=== PATIENT | female | born 1985 | race Caucasian/White ===

== ENCOUNTER 2018-08-21 08:05 | Emergency (ER) | payer OTHER ==
[~2018-08-21] VITALS: Ht 170.2 cm; Wt 87.0 kg
[~2018-08-21 08:05] MED LIST: CLIN300C85 PO
[2018-08-21 08:11] VITALS: BP 134/77
[2018-08-21] MEDS ORDERED: TAM75C PO (08:22)
[2018-08-21] MEDS ORDERED: CEFD300C3 PO (08:22)
== END 2018-08-21 08:33 | disposition home or self-care (01) ==
LOC: ER 08:05 → EEVIPCON 08:05 → ER 08:33
DX: O99.511 Diseases of the respiratory system complicating pregnancy, first trimester (principal); J01.00 Acute maxillary sinusitis, unspecified; J01.10 Acute frontal sinusitis, unspecified; Z3A.13 13 weeks gestation of pregnancy; Z88.0 Allergy status to penicillin; Z88.1 Allergy status to other antibiotic agents; Z88.2 Allergy status to sulfonamides
CPT/HCPCS: 99283

== ENCOUNTER 2020-02-05 09:29 | Outpatient (CLI) | payer BC ==
[~2020-02-05 09:29] MED LIST changes: +CLIN-97 PO; -CLIN300C85 PO
== END 2020-02-05 23:59 | disposition home or self-care (01) ==
LOC: LAB 09:29
DX: Z01.818 Encounter for other preprocedural examination (principal); Z11.59 Encounter for screening for other viral diseases
CPT/HCPCS: 36415; U0003

== ENCOUNTER 2020-02-24 08:11 | Outpatient (CLI) | payer BC | END 2020-02-24 23:59 | disposition home or self-care (01) | LOC: LAB 08:11 | DX: Z34.80 Encounter for supervision of other normal pregnancy, unspecified trimester (principal); Z3A.00 Weeks of gestation of pregnancy not specified | CPT/HCPCS: 36415; 84144; 84702 ==

== ENCOUNTER 2020-03-24 15:07 | Outpatient (CLI) | payer BC | END 2020-03-24 23:59 | disposition home or self-care (01) | LOC: LAB 15:07 | DX: Z01.812 Encounter for preprocedural laboratory examination (principal); Z20.828 Contact with and (suspected) exposure to other viral communicable diseases | CPT/HCPCS: 36415; C9803 ==

== ENCOUNTER 2020-04-08 16:08 | Outpatient (CLI) | payer BC | END 2020-04-08 23:59 | disposition home or self-care (01) | LOC: LAB 16:08 | DX: Z34.80 Encounter for supervision of other normal pregnancy, unspecified trimester (principal) | CPT/HCPCS: 36415; 84144; 84702 ==

== ENCOUNTER 2020-04-29 11:27 | Outpatient (CLI) | payer BC ==
[2020-04-29 16:38] LABS: HIV ANTIBODY 1&2 RAPID NON-REACTIVE (Neg)
[2020-04-30 09:49] LABS: HBSAG SCREEN Negative (Negative)
== END 2020-04-29 23:59 | disposition home or self-care (01) ==
LOC: LAB 11:27
DX: Z00.00 Encounter for general adult medical examination without abnormal findings (principal); Z11.3 Encounter for screening for infections with a predominantly sexual mode of transmission; Z11.4 Encounter for screening for human immunodeficiency virus [HIV]; Z11.9 Encounter for screening for infectious and parasitic diseases, unspecified
CPT/HCPCS: 36415; 86592; 86703; 86706; 86803; 87340

== ENCOUNTER 2020-05-24 10:47 | Outpatient (CLI) | payer BC | END 2020-05-24 23:59 | disposition home or self-care (01) | LOC: LAB 10:47 | DX: Z34.80 Encounter for supervision of other normal pregnancy, unspecified trimester (principal) | CPT/HCPCS: 36415; 84144; 84702 ==

== ENCOUNTER 2020-05-26 08:38 | Outpatient (CLI) | payer BC | END 2020-05-26 23:59 | disposition home or self-care (01) | LOC: LAB 08:38 | DX: Z34.80 Encounter for supervision of other normal pregnancy, unspecified trimester (principal); Z3A.00 Weeks of gestation of pregnancy not specified | CPT/HCPCS: 36415; 84144; 84702 ==

== ENCOUNTER → 2020-05-28 | Outpatient (CLI) | payer BC | END | disposition home or self-care (01) | LOC: LAB 14:53 | DX: Z34.80 Encounter for supervision of other normal pregnancy, unspecified trimester (principal) | CPT/HCPCS: 36415; 84144; 84702 ==

== ENCOUNTER 2020-09-22 07:53 | Outpatient (CLI) | payer BC | END 2020-09-22 23:59 | disposition home or self-care (01) | LOC: LAB 07:53 | DX: Z34.80 Encounter for supervision of other normal pregnancy, unspecified trimester (principal); Z3A.00 Weeks of gestation of pregnancy not specified | CPT/HCPCS: 36415; 84144; 84702 ==

== ENCOUNTER → 2020-09-24 | Outpatient (CLI) | payer BC | END | disposition home or self-care (01) | LOC: LAB 08:52 | DX: Z34.80 Encounter for supervision of other normal pregnancy, unspecified trimester (principal) | CPT/HCPCS: 36415; 84144; 84702 ==

== ENCOUNTER 2021-04-13 11:40 | Outpatient (CLI) | payer BC | END 2021-04-13 23:59 | disposition home or self-care (01) | LOC: LAB 11:40 | PROVIDERS: ATTEND Specialist | DX: Z00.00 Encounter for general adult medical examination without abnormal findings (principal); Z53.21 Procedure and treatment not carried out due to patient leaving prior to being seen by health care provider ==

== ENCOUNTER 2021-04-13 11:47 | Outpatient (CLI) | payer BC ==
[2021-04-13 12:39] LABS: BASOPHILS % (AUTO) 0.3 % (0-1); EOSINOPHILS # (AUTO) 0.3 X10'3 (0-0.9); EOSINOPHILS % (AUTO) 3.4 % (0-6); HEMATOCRIT 41.3 % (35.0-45.0); HEMOGLOBIN 13.8 g/dl (12.0-16.0); LYMPHOCYTES # (AUTO) 1.7 X10'3 (1.1-4.8); LYMPHOCYTES % (AUTO) 19.7 % (21-51); MEAN CORPUSCULAR HEMOGLOBIN 28.1 PG (27.0-31.0); MEAN CORPUSCULAR HGB CONC 33.3 g/dL (33.0-36.5); MEAN CORPUSCULAR VOLUME 84.4 FL (78-98); MEAN PLATELET VOLUME 8.8 FL (7.4-10.4); MONOCYTES # (AUTO) 0.4 X10'3 (0-0.9); MONOCYTES % (AUTO) 4.5 % (2-12); NEUTROPHILS # (AUTO) 6.1 X10'3 (1.8-7.7); NEUTROPHILS % (AUTO) 72.1 % (42-75); PLATELET COUNT 304 X10'3 (140-440); RED BLOOD COUNT 4.89 X10'6 (4.20-5.60); RED CELL DISTRIBUTION WIDTH 13.8 % (11.5-14.5); WHITE BLOOD COUNT 8.5 X10'3 (4.5-11.0)
[2021-04-13 13:09] LABS: ALANINE AMINOTRANSFERASE 61 U/L (12-78); ALBUMIN/GLOBULIN RATIO 1.1 (1.1-1.5); ALKALINE PHOSPHATASE 74 IU/L (46-116); ANION GAP 12 (8-16); ASPARTATE AMINO TRANSFERASE 27 U/L (10-37); BILIRUBIN,TOTAL 0.4 MG/DL (0.1-1.0); BLOOD UREA NITROGEN 12 MG/DL (7-18); BUN/CREATININE RATIO 14.6 (6.6-38.0); CALCIUM 8.7 MG/DL (8.5-10.1); CHLORIDE 104 MMOL/L (99-107); CHOL/HDL RATIO 4.3 (0.00-4.99); CHOLESTEROL 177 MG/DL (0-200); CREATININE 0.82 MG/DL (0.40-0.90); GLUCOSE 131 MG/DL (70-104); HDL CHOLESTEROL 41 MG/DL (35-60); HEMOGLOBIN A1C 5.5 % (4.5-6.2); LDL CHOLESTEROL 105 MG/DL (50-100); POTASSIUM 3.7 MMOL/L (3.5-5.1); SODIUM 141 MMOL/L (135-145); TOTAL CARBON DIOXIDE 25.3 MMOL/L (24-32); TOTAL PROTEIN 7.6 G/DL (6.4-8.2); TRIGLYCERIDES 229 MG/DL (20-135); eGFR 79 ML/MIN
== END 2021-04-13 23:59 | disposition home or self-care (01) ==
LOC: LAB 11:47
PROVIDERS: ATTEND Nurse Practitioner Family
DX: R79.89 Other specified abnormal findings of blood chemistry (principal); R68.89 Other general symptoms and signs; E78.5 Hyperlipidemia, unspecified; E55.9 Vitamin D deficiency, unspecified; R73.09 Other abnormal glucose; R94.6 Abnormal results of thyroid function studies
CPT/HCPCS: 36415; 80053; 80061; 82306; 83036; 84443; 85025

== ENCOUNTER 2021-08-01 10:35 | Day surgery (SDC) | payer BC ==
[2021-07-22 11:17] LABS: BASOPHILS % (AUTO) 0.3 % (0-1); EOSINOPHILS # (AUTO) 0.1 X10'3 (0-0.9); EOSINOPHILS % (AUTO) 1.2 % (0-6); LYMPHOCYTES # (AUTO) 1.7 X10'3 (1.1-4.8); LYMPHOCYTES % (AUTO) 19.4 % (21-51); MEAN CORPUSCULAR HEMOGLOBIN 27.7 PG (27.0-31.0); MEAN CORPUSCULAR HGB CONC 33.5 g/dL (33.0-36.5); MEAN CORPUSCULAR VOLUME 82.8 FL (78-98); MONOCYTES # (AUTO) 0.4 X10'3 (0-0.9); MONOCYTES % (AUTO) 4.9 % (2-12); NEUTROPHILS # (AUTO) 6.7 X10'3 (1.8-7.7); NEUTROPHILS % (AUTO) 74.2 % (42-75); PRE OP HEMATOCRIT 39.1 % (35.0-45.0); PRE OP HEMOGLOBIN 13.1 g/dL (12.0-16.0); PRE OP PLATELET COUNT 307 X10'3 (140-440); RED BLOOD COUNT 4.73 X10'6 (4.20-5.60); RED CELL DISTRIBUTION WIDTH 13.7 % (11.5-14.5)
[2021-07-22 11:25] LABS: HCG SERUM QL NEGATIVE
[2021-07-22 11:28] LABS: ALBUMIN 3.4 G/DL (3.4-5.0); ALBUMIN/GLOBULIN RATIO 0.8 (1.1-1.5); ALKALINE PHOSPHATASE 56 IU/L (46-116); BLOOD UREA NITROGEN 14 MG/DL (7-18); BUN/CREATININE RATIO 17.9 (6.6-38.0); CALCIUM 8.8 MG/DL (8.5-10.1); CHLORIDE 104 MMOL/L (99-107); CREATININE 0.78 MG/DL (0.40-0.90); PRE OP ALT 42 U/L (30-65); PRE OP ANION GAP 11 (8-16); PRE OP AST 20 U/L (10-37); PRE OP BILIRUB, TOTAL 0.3 MG/DL (0.0-1.0); PRE OP GLUCOSE 89 MG/DL (70-104); PRE OP POTASSIUM 3.9 MMOL/L (3.4-5.1); PRE OP SODIUM 140 MMOL/L (135-145); TOTAL CARBON DIOXIDE 24.6 MMOL/L (24-32); TOTAL PROTEIN 7.5 G/DL (6.4-8.2); eGFR 84 ML/MIN
[~2021-08-01] VITALS: Ht 170.2 cm; Wt 83.0 kg
[2021-08-01] VITALS (13 sets, daily range): BP systolic 114–137; BP diastolic 71–93
[~2021-08-01 10:35] MED LIST changes: +Birth Control; -CLIN-97 PO; +DOCUMENT DATE & TIME OF BETA-BLOCKER PO ONE; +ceFOXitin 2GM-NS 100mL ADDvant 100 ML IV ONE; +famotidine 20mg tablet PO ONE; +ringers solution, lacted 1,000 ML IV SCH
[2021-08-01] MEDS ORDERED: BUPIVAcaine 0.5% W/EPI /PF 10ml vial ONE (12:48)
[2021-08-01] MEDS ORDERED: morphine 4 MG/ML inj SYRINge IV PRN (13:00)
[2021-08-01] MEDS ORDERED: morphine 2 MG/ML inj. syringe IV PRN (13:00)
[2021-08-01] MEDS ORDERED: hydrALAZINE 20mg/ml inj. IV PRN (13:00)
[2021-08-01] MEDS ORDERED: ringers solution, lacted 1,000 ML IV SCH (13:00)
[2021-08-01] MEDS ORDERED: ondansetron/PF 4mg/2ml inj IV PRN (13:00)
[2021-08-01] MEDS ORDERED: fentaNYL/PF 50MCG/1 ML 2ML syringe IV PRN ×2 (13:00)
[2021-08-01] MEDS ORDERED: labetalol 20mg/4ml (5mg/ml) syringe IV PRN (13:00)
[2021-08-01] MEDS ORDERED: fentaNYL/PF 50MCG/1 ML 2ML syringe ONE (13:03)
[2021-08-01] MEDS ORDERED: midazolam 1 mg/ML 2ml injection ONE (13:04)
[2021-08-01] MEDS ORDERED: LIDOcaine 2% (20mg/ml) 5ml vial ONE (13:04)
[2021-08-01] MEDS ORDERED: propofol inj 20 ML IV ONE (13:04)
[2021-08-01] MEDS ORDERED: sevoflurane 250ml liquid IH ONE (13:05)
[2021-08-01] MEDS ORDERED: dexamethasone sod phosphate 10mg/ml inj ONE (13:05)
[2021-08-01] MEDS ORDERED: ondansetron/PF 4mg/2ml inj ONE (13:05)
[2021-08-01] MEDS ORDERED: acetaminophen 1,000mg/100ml IV 100 ML IV ONE (13:13)
[2021-08-01] MEDS ORDERED: HYDROcodone/acetaminophen 5mg/325mg tablet PO ONE (15:00)
== END 2021-08-01 15:29 | disposition home or self-care (01) ==
LOC: PAS 10:35
PROVIDERS: ATTEND Specialist
DX: N92.0 Excessive and frequent menstruation with regular cycle (principal); N71.1 Chronic inflammatory disease of uterus; Z88.0 Allergy status to penicillin; Z79.899 Other long term (current) drug therapy; Z72.89 Other problems related to lifestyle; Z98.890 Other specified postprocedural states
CPT/HCPCS: 36415; 58563; 80053; 82948; 84703; 85025; J0131; J0694; J1100; J2250; J2405; J2704; J3010; J3490; J7120; S0020; Z7506; Z7512; A4355; A4618; A4649; A6258; A7000

== ENCOUNTER 2021-10-28 08:27 | Outpatient (CLI) | payer BC ==
[~2021-10-28 08:27] MED LIST changes: -DOCUMENT DATE & TIME OF BETA-BLOCKER PO ONE; -ceFOXitin 2GM-NS 100mL ADDvant 100 ML IV ONE; -famotidine 20mg tablet PO ONE; -ringers solution, lacted 1,000 ML IV SCH
[2021-10-28 09:14] LABS: ALANINE AMINOTRANSFERASE 43 U/L (12-78); ALBUMIN 3.8 G/DL (3.4-5.0); ALBUMIN/GLOBULIN RATIO 1.2 (1.1-1.5); ALKALINE PHOSPHATASE 59 IU/L (46-116); ASPARTATE AMINO TRANSFERASE 20 U/L (10-37); BLOOD UREA NITROGEN 9 MG/DL (7-18); BUN/CREATININE RATIO 12.7 (6.6-38.0); CALCIUM 8.7 MG/DL (8.5-10.1); CHLORIDE 104 MMOL/L (99-107); CHOL/HDL RATIO 3.9 (0.00-4.99); CHOLESTEROL 186 MG/DL (0-200); CREATININE 0.71 MG/DL (0.40-0.90); GLUCOSE 95 MG/DL (70-104); HDL CHOLESTEROL 48 MG/DL (35-60); LDL CHOLESTEROL 103 MG/DL (50-100); POTASSIUM 4.2 MMOL/L (3.5-5.1); SODIUM 142 MMOL/L (135-145); TOTAL PROTEIN 7.1 G/DL (6.4-8.2); TRIGLYCERIDES 240 MG/DL (20-135); eGFR > 90 ML/MIN
[2021-10-28 09:52] LABS: ANION GAP 13 (8-16); BILIRUBIN,TOTAL 0.3 MG/DL (0.1-1.0); TOTAL CARBON DIOXIDE 25.1 MMOL/L (24-32)
[2021-10-31] MEDS ORDERED: RIME75TA PO (10:00)
[2021-10-31] MEDS ORDERED: MULT-1085 PO (10:00)
== END 2021-10-28 23:59 | disposition home or self-care (01) ==
LOC: LAB 08:27
PROVIDERS: ATTEND Nurse Practitioner Family
DX: E78.00 Pure hypercholesterolemia, unspecified (principal); E78.5 Hyperlipidemia, unspecified; R68.89 Other general symptoms and signs; R53.83 Other fatigue
CPT/HCPCS: 36415; 80053; 80061; 84439; 84443

== ENCOUNTER → 2021-11-03 | Day surgery (SDC) | payer BC ==
[2021-10-31 10:27] LABS: BASOPHILS % (AUTO) 0.4 % (0-1); EOSINOPHILS # (AUTO) 0.3 X10'3 (0-0.9); EOSINOPHILS % (AUTO) 4.7 % (0-6); LYMPHOCYTES # (AUTO) 1.9 X10'3 (1.1-4.8); LYMPHOCYTES % (AUTO) 25.3 % (21-51); MEAN CORPUSCULAR HEMOGLOBIN 26.8 PG (27.0-31.0); MONOCYTES # (AUTO) 0.5 X10'3 (0-0.9); MONOCYTES % (AUTO) 6.8 % (2-12); NEUTROPHILS # (AUTO) 4.6 X10'3 (1.8-7.7); NEUTROPHILS % (AUTO) 62.8 % (42-75); PRE OP HEMATOCRIT 42.9 % (35.0-45.0); PRE OP HEMOGLOBIN 14.2 g/dL (12.0-16.0); PRE OP PLATELET COUNT 268 X10'3 (140-440); RED CELL DISTRIBUTION WIDTH 14.5 % (11.5-14.5)
[2021-10-31 11:00] LABS: HCG SERUM QL NEGATIVE
[2021-11-03] VITALS (8 sets, daily range): BP systolic 104–144; BP diastolic 67–97
[~2021-11-03] VITALS: Ht 170.2 cm; Wt 87.7 kg
[~2021-11-03] MED LIST changes: +BUPIVAcaine 0.5% inj/PF 30 ml vial IJ ONE; +BUPIVAcaine 0.5% inj/PF 60 ML ONE; -Birth Control; +FENTANYL CITRATE/PF 50 MCG/1 ML VIAL ONE; +LIDOcaine 2% (20mg/ml) 5ml vial ONE; +MULT-1085 PO; +RIME75TA PO; +ceFOXitin 2GM-NS 100mL ADDvant 100 ML IV ONE; +dexamethasone sod phosphate 4mg/ml inj. ONE; +epiNEPHrine 1 mg/ml inj ONE; +famotidine 20mg tablet PO ONE; +fentaNYL/PF 50MCG/1 ML 2ML syringe IV PRN; +glycopyrrolate 0.2mg/ml inj ONE; +hydrALAZINE 20mg/ml inj. IV PRN; +ketorolac trometh. 30mg/ml inj. ONE; +labetalol 20mg/4ml (5mg/ml) syringe IV ONE; +labetalol 20mg/4ml (5mg/ml) syringe IV PRN; +midazolam 1 mg/ML 2ml injection ONE; +morphine 2 MG/ML inj. syringe IV PRN; +morphine 4 MG/ML inj SYRINge IV PRN; +neostigmine methylsulfate 1 MG/ML 10ml vial ONE; +ondansetron/PF 4mg/2ml inj IV PRN; +ondansetron/PF 4mg/2ml inj ONE; +propofol inj 20 ML IV ONE; +ringers solution, lacted 1,000 ML IV SCH; +rocuronium 10mg/ml inj IV ONE; +sevoflurane 250ml liquid IH ONE
--- NOTE | 2021-11-03 08:13 | NUR ---
Received from OR via [facility], accompanied by Anesthesiologist NELSON and report given by Anesthesiolgist. PATIENT WITH 20G PIV IN LEFT UE RUNNING LR AT 100. DENIES PAIN AT THIS TIME. 2 LAP SITES THAT AREA DERMABONDED SHUT WITH NO DRAINAGE. 10L MASK ON WITH 100% SATURATIONS. Addendum: 11/03/21 at 0824 by Emerson Osman RN, RN Amended: Links added.
--- NOTE | 2021-11-03 09:13 | NUR ---
ALL DISCHARGE CRITERIA HAS BEEN MET. VSS, PAIN AT A TOLERABLE LEVEL, VOIDING AND ABLE TO SAFELY AMBULATE AND TRANSFER SELF. IV TAKEN OUT WITHOUT ANY COMPLICATIONS. ALL DISCHARGE INSTRUCTIONS COVERED WITH PATIENT AND ALL QUESTIONS ANSWERED. PATIENT TAKEN OUT VIA WHEELCHAIR TO PERSONAL VEHICLE WHERE FAMILY/FRIEND DROVE PATIENT HOME. PATIENT DRESSED SELF. Addendum: 11/03/21 at 0943 by Emerson Osman RN, RN Amended: Links added.
== END | disposition home or self-care (01) ==
LOC: PAS 05:24
PROVIDERS: ATTEND Specialist
DX: Z30.2 Encounter for sterilization (principal); G43.909 Migraine, unspecified, not intractable, without status migrainosus; Z88.0 Allergy status to penicillin; Z79.899 Other long term (current) drug therapy; Z98.890 Other specified postprocedural states; Z88.8 Allergy status to other drugs, medicaments and biological substances
CPT/HCPCS: 36415; 58670; 82948; 84703; 85025; J0171; J0694; J1100; J1885; J2250; J2405; J2704; J2710; J3010; J3490; J7030; J7120; S0020; Z7506; Z7512; A4618; A7000

== ENCOUNTER 2022-01-27 08:03 | Outpatient (CLI) | payer BC ==
[~2022-01-27 08:03] MED LIST changes: -BUPIVAcaine 0.5% inj/PF 30 ml vial IJ ONE; -BUPIVAcaine 0.5% inj/PF 60 ML ONE; -FENTANYL CITRATE/PF 50 MCG/1 ML VIAL ONE; -LIDOcaine 2% (20mg/ml) 5ml vial ONE; -ceFOXitin 2GM-NS 100mL ADDvant 100 ML IV ONE; -dexamethasone sod phosphate 4mg/ml inj. ONE; -epiNEPHrine 1 mg/ml inj ONE; -famotidine 20mg tablet PO ONE; -fentaNYL/PF 50MCG/1 ML 2ML syringe IV PRN; -glycopyrrolate 0.2mg/ml inj ONE; -hydrALAZINE 20mg/ml inj. IV PRN; -ketorolac trometh. 30mg/ml inj. ONE; -labetalol 20mg/4ml (5mg/ml) syringe IV ONE; -labetalol 20mg/4ml (5mg/ml) syringe IV PRN; -midazolam 1 mg/ML 2ml injection ONE; -morphine 2 MG/ML inj. syringe IV PRN; -morphine 4 MG/ML inj SYRINge IV PRN; -neostigmine methylsulfate 1 MG/ML 10ml vial ONE; -ondansetron/PF 4mg/2ml inj IV PRN; -ondansetron/PF 4mg/2ml inj ONE; -propofol inj 20 ML IV ONE; -ringers solution, lacted 1,000 ML IV SCH; -rocuronium 10mg/ml inj IV ONE; -sevoflurane 250ml liquid IH ONE
== END 2022-01-27 23:59 | disposition home or self-care (01) ==
LOC: RAD 08:03
PROVIDERS: ATTEND Psychiatry & Neurology Neurology
DX: R51.9 Headache, unspecified (principal); J34.89 Other specified disorders of nose and nasal sinuses
CPT/HCPCS: 70551

== ENCOUNTER 2022-01-27 08:10 | Outpatient (CLI) | payer BC ==
[2022-01-27 09:08] LABS: BASOPHILS % (AUTO) 0.6 % (0-1); EOSINOPHILS # (AUTO) 0.2 X10'3 (0-0.9); EOSINOPHILS % (AUTO) 3.5 % (0-6); HEMATOCRIT 41.7 % (35.0-45.0); HEMOGLOBIN 14.2 g/dl (12.0-16.0); LYMPHOCYTES # (AUTO) 1.5 X10'3 (1.1-4.8); LYMPHOCYTES % (AUTO) 23.5 % (21-51); MEAN CORPUSCULAR HEMOGLOBIN 28.5 PG (27.0-31.0); MEAN CORPUSCULAR HGB CONC 34.1 g/dL (33.0-36.5); MEAN CORPUSCULAR VOLUME 83.7 FL (78-98); MONOCYTES # (AUTO) 0.5 X10'3 (0-0.9); MONOCYTES % (AUTO) 7.7 % (2-12); NEUTROPHILS # (AUTO) 4.1 X10'3 (1.8-7.7); NEUTROPHILS % (AUTO) 64.7 % (42-75); PLATELET COUNT 295 X10'3 (140-440); RED BLOOD COUNT 4.98 X10'6 (4.20-5.60); WHITE BLOOD COUNT 6.3 X10'3 (4.5-11.0)
[2022-01-27 09:12] LABS: ALBUMIN 3.9 G/DL (3.4-5.0); ANION GAP 8 (8-16); BLOOD UREA NITROGEN 19 MG/DL (7-18); CALCIUM 8.9 MG/DL (8.5-10.1); CHLORIDE 104 MMOL/L (99-107); CREATININE 0.73 MG/DL (0.40-0.90); GLUCOSE 98 MG/DL (70-104); POTASSIUM 4.2 MMOL/L (3.5-5.1); SODIUM 140 MMOL/L (135-145); eGFR 90 ML/MIN
[2022-01-28 11:18] LABS: FSH, SERUM 7.4 mIU/mL (.)
== END 2022-01-27 23:59 | disposition home or self-care (01) ==
LOC: LAB 08:10
PROVIDERS: ATTEND Specialist
DX: R23.2 Flushing (principal)
CPT/HCPCS: 36415; 80048; 82679; 83001; 85025

== ENCOUNTER 2023-02-28 08:16 | Emergency (ER) | payer BC ==
[~2023-02-28] VITALS: Ht 170.2 cm; Wt 74.2 kg
[2023-02-28 08:27] VITALS: BP 130/83; PULSE 86; RESP 18; O2SAT 97
[2023-02-28 09:06] LABS: CLARITY,URINE CLEAR (Clear); COLOR,URINE YELLOW (Yellow); GLUCOSE, URINE NEGATIVE (Neg); KETONES,URINE NEGATIVE (Neg); LEUKOCYTE ESTERASE ,URINE NEGATIVE (Neg); NITRITES, URINE NEGATIVE (Neg); OCCULT BLOOD,URINE NEGATIVE (Neg); PROTEIN,URINE NEGATIVE (Neg); UROBILINOGEN,URINE 0.2 E.U/dL (0.2-1.0)
[2023-02-28 09:13] LABS: UA COLLECTION TYPE CLN CATCH MIDSTREAM
== END 2023-02-28 09:46 | disposition home or self-care (01) ==
LOC: ER 08:16
DX: R10.30 Lower abdominal pain, unspecified (principal); R30.0 Dysuria; R35.0 Frequency of micturition; R39.15 Urgency of urination; Z72.89 Other problems related to lifestyle; Z88.0 Allergy status to penicillin; Z88.2 Allergy status to sulfonamides; Z88.8 Allergy status to other drugs, medicaments and biological substances; Z79.899 Other long term (current) drug therapy
CPT/HCPCS: 81003; 99283

== ENCOUNTER 2023-06-13 06:27 | Day surgery (SDC) | payer BC ==
[2023-06-07 10:22] LABS: BASOPHILS % (AUTO) 0.5 % (0-1); EOSINOPHILS # (AUTO) 0.2 X10'3 (0-0.9); EOSINOPHILS % (AUTO) 2.2 % (0-6); HEMATOCRIT 41.7 % (35.0-45.0); HEMOGLOBIN 14.1 g/dl (12.0-16.0); LYMPHOCYTES # (AUTO) 1.4 X10'3 (1.1-4.8); LYMPHOCYTES % (AUTO) 15.7 % (21-51); MEAN CORPUSCULAR HEMOGLOBIN 29.3 PG (27.0-31.0); MEAN CORPUSCULAR HGB CONC 33.7 g/dL (33.0-36.5); MEAN CORPUSCULAR VOLUME 86.7 FL (78-98); MEAN PLATELET VOLUME 8.6 FL (7.4-10.4); MONOCYTES # (AUTO) 0.8 X10'3 (0-0.9); MONOCYTES % (AUTO) 8.6 % (2-12); NEUTROPHILS # (AUTO) 6.6 X10'3 (1.8-7.7); PLATELET COUNT 301 X10'3 (140-440); RED BLOOD COUNT 4.81 X10'6 (4.20-5.60); RED CELL DISTRIBUTION WIDTH 13.3 % (11.5-14.5); WHITE BLOOD COUNT 9.1 X10'3 (4.5-11.0)
[2023-06-07 10:36] LABS: ALANINE AMINOTRANSFERASE 20 U/L (12-78); ALKALINE PHOSPHATASE 60 IU/L (46-116); ANION GAP 7 (8-16); ASPARTATE AMINO TRANSFERASE 14 U/L (10-37); BILIRUBIN,TOTAL 0.6 MG/DL (0.1-1.0); BLOOD UREA NITROGEN 12 MG/DL (7-18); BUN/CREATININE RATIO 17.1 (10.0-20.0); CALCIUM 9.3 MG/DL (8.5-10.1); CHLORIDE 101 MMOL/L (99-107); GLUCOSE 95 MG/DL (70-104); POTASSIUM 4.4 MMOL/L (3.5-5.1); SODIUM 138 MMOL/L (135-145); TOTAL CARBON DIOXIDE 30.4 MMOL/L (24-32); TOTAL PROTEIN 7.9 G/DL (6.4-8.2); eGFR > 90 ML/MIN
[~2023-06-13] VITALS: Ht 170.2 cm; Wt 74.8 kg
[2023-06-13] VITALS (8 sets, daily range): BP systolic 105–115; BP diastolic 68–78; PULSE 68–88; RESP 14–16; TEMP 98.3; O2SAT 98–100
[~2023-06-13 06:27] MED LIST changes: +DOCU-21 PO; +INDLA60C PO; +METF-436 PO; -MULT-1085 PO; -RIME75TA PO; +SEMA0.258 IM; +VITAMIN B12; +[UNRECOGNIZED DRUG - OTHER]; +famotidine 20mg tablet PO ONE; +ringers solution, lacted 1,000 ML IV SCH
[2023-06-13] MEDS ORDERED: LIDOCAINE 1%/EPI 1:100,000 inj. 10 ML multi-dose vial ONE (07:53)
[2023-06-13] MEDS ORDERED: BUPIVAcaine/PF 2.5mg/ml (0.25%) 10ml vial ONE (07:53)
[2023-06-13] MEDS ORDERED: fentaNYL/PF 50MCG/1 ML 2ML syringe ONE (08:27)
[2023-06-13] MEDS ORDERED: rocuronium 10mg/ml inj IV ONE (08:28)
[2023-06-13] MEDS ORDERED: midazolam 1 mg/ML 2ml injection ONE (08:28)
[2023-06-13] MEDS ORDERED: propofol inj 20 ML IV ONE (08:28)
[2023-06-13] MEDS ORDERED: sevoflurane 250ml liquid IH ONE (08:32)
[2023-06-13] MEDS ORDERED: dexamethasone sod phosphate 4mg/ml inj. ONE (08:55)
[2023-06-13] MEDS ORDERED: ondansetron/PF 4mg/2ml inj ONE (09:08)
[2023-06-13] MEDS ORDERED: acetaminophen 1,000mg/100ml IV 100 ML IV ONE (09:08)
[2023-06-13] MEDS ORDERED: proCHLORperazine 10 MG/2 ml inj IV PRN (09:15)
[2023-06-13] MEDS ORDERED: ondansetron/PF 4mg/2ml inj IV PRN (09:15)
[2023-06-13] MEDS ORDERED: morphine 2 MG/ML inj. syringe IV PRN (09:15)
[2023-06-13] MEDS ORDERED: morphine 4 MG/ML inj SYRINge IV PRN (09:15)
[2023-06-13] MEDS ORDERED: meperidine/PF 25mg/ml syringe IV PRN ×3 (09:15)
[2023-06-13] MEDS ORDERED: ringers solution, lacted 1,000 ML IV SCH (09:15)
[2023-06-13] MEDS ORDERED: sugammadex 200mg/2ml injection IV ONE (09:21)
--- NOTE | 2023-06-13 09:40 | NUR ---
Received from OR via , accompanied by Anesthesiologist and report given by Anesthesiolgist. PATIENT A&OX4, DENIES PAIN, V/S WNL, SCD ON , PIV 20G RUE.DRESSING TO BUTTOCKS RECTAL AREA NO ACTIVE DRAINING OBSERVED CDI
--- NOTE | 2023-06-13 10:40 | NUR ---
PATIENT A&OX4, DENIES PAIN, V/S WNL, SCD OFF , PIV 20G RUE D/C. DRESSING TO BUTTOCKS RECTAL AREA NO ACTIVE DRAINING OBSERVED CDI. I HAVE REVIEWED D/C INSTRUCTIONS AND GIVEN PATIENT SITZ BATH FOR HOME AND SHE HAS VERBALIZED UNDERSTANDING AND WAS D/C HOME WITH BOYFRIEND FOR TRANSPORT.
== END 2023-06-13 10:40 | disposition home or self-care (01) ==
LOC: PAS 06:27
PROVIDERS: ATTEND Colon & Rectal Surgery
DX: K64.8 Other hemorrhoids (principal); K64.1 Second degree hemorrhoids; K60.1 Chronic anal fissure; K60.0 Acute anal fissure; G43.909 Migraine, unspecified, not intractable, without status migrainosus; Z88.0 Allergy status to penicillin; Z88.1 Allergy status to other antibiotic agents; Z88.8 Allergy status to other drugs, medicaments and biological substances; Z98.890 Other specified postprocedural states; Z79.899 Other long term (current) drug therapy
CPT/HCPCS: 36415; 46255; 46270; 80053; 82948; 85025; J0131; J1100; J2250; J2405; J2704; J3010; J3490; J7030; J7120; Z7506; Z7508; Z7512; A4215; A4402; A4618; A6253; A6449; A7000

== ENCOUNTER 2024-04-11 07:13 | Outpatient (CLI) | payer BC ==
[~2024-04-11 07:13] MED LIST changes: -famotidine 20mg tablet PO ONE; -ringers solution, lacted 1,000 ML IV SCH
[2024-04-11 07:50] LABS: BASOPHILS % (AUTO) 0.5 % (0-1); EOSINOPHILS # (AUTO) 0.3 X10'3 (0-0.9); EOSINOPHILS % (AUTO) 3.5 % (0-6); HEMATOCRIT 40.6 % (35.0-45.0); HEMOGLOBIN 13.7 g/dl (12.0-16.0); LYMPHOCYTES # (AUTO) 1.7 X10'3 (1.1-4.8); LYMPHOCYTES % (AUTO) 22.7 % (21-51); MEAN CORPUSCULAR HEMOGLOBIN 29.3 PG (27.0-31.0); MEAN CORPUSCULAR HGB CONC 33.7 g/dL (33.0-36.5); MEAN CORPUSCULAR VOLUME 86.9 FL (78-98); MEAN PLATELET VOLUME 8.7 FL (7.4-10.4); MONOCYTES # (AUTO) 0.5 X10'3 (0-0.9); MONOCYTES % (AUTO) 6.3 % (2-12); NEUTROPHILS # (AUTO) 5.1 X10'3 (1.8-7.7); PLATELET COUNT 257 X10'3 (140-440); RED BLOOD COUNT 4.67 X10'6 (4.20-5.60); RED CELL DISTRIBUTION WIDTH 13.2 % (11.5-14.5); WHITE BLOOD COUNT 7.7 X10'3 (4.5-11.0)
[2024-04-11 08:04] LABS: ALANINE AMINOTRANSFERASE 30 U/L (12-78); ALBUMIN 3.7 G/DL (3.4-5.0); ALKALINE PHOSPHATASE 51 IU/L (46-116); ANION GAP 11 (8-16); ASPARTATE AMINO TRANSFERASE 15 U/L (10-37); BILIRUBIN,TOTAL 0.4 MG/DL (0.1-1.0); BLOOD UREA NITROGEN 16 MG/DL (7-18); BUN/CREATININE RATIO 22.2 (10.0-20.0); CALCIUM 8.8 MG/DL (8.5-10.1); CHLORIDE 106 MMOL/L (99-107); CREATININE 0.72 MG/DL (0.40-0.90); FREE T4 (FREE THYROXINE) 0.95 NG/DL (0.73-1.40); GLUCOSE 97 MG/DL (70-104); SODIUM 142 MMOL/L (135-145); THYROID STIMULATING HORMONE 2.98 ulU/ml (0.34-4.50); TOTAL CARBON DIOXIDE 25.2 MMOL/L (24-32); TOTAL PROTEIN 7.4 G/DL (6.4-8.2); eGFR 90 ML/MIN
[2024-04-11 08:10] LABS: HEMOGLOBIN A1C 5.3 % (4.5-6.2)
[2024-04-12 08:00] LABS: INSULIN 20.9 uIU/mL (2.6-24.9)
[2024-04-12 08:55] LABS: FOLATE SERUM(FOLIC) 11.6 ng/mL (>3.0)
== END 2024-04-11 23:59 | disposition home or self-care (01) ==
LOC: LAB 07:13
PROVIDERS: ATTEND Nurse Practitioner Family
DX: R73.03 Prediabetes (principal); R53.83 Other fatigue; E55.9 Vitamin D deficiency, unspecified; D51.9 Vitamin B12 deficiency anemia, unspecified; E78.5 Hyperlipidemia, unspecified; E66.9 Obesity, unspecified
CPT/HCPCS: 36415; 80053; 82607; 82746; 83036; 83525; 84439; 84443; 84480; 85025

== ENCOUNTER 2024-08-07 08:44 | Outpatient (CLI) | payer BC ==
[2024-08-07 10:16] LABS: BASOPHILS % (AUTO) 0.3 % (0-1); EOSINOPHILS # (AUTO) 0.2 X10'3 (0-0.9); EOSINOPHILS % (AUTO) 2.5 % (0-6); HEMATOCRIT 40.3 % (35.0-45.0); HEMOGLOBIN 13.8 g/dl (12.0-16.0); LYMPHOCYTES # (AUTO) 1.5 X10'3 (1.1-4.8); LYMPHOCYTES % (AUTO) 19.7 % (21-51); MEAN CORPUSCULAR HEMOGLOBIN 29.5 PG (27.0-31.0); MEAN CORPUSCULAR HGB CONC 34.4 g/dL (33.0-36.5); MEAN PLATELET VOLUME 9.3 FL (7.4-10.4); MONOCYTES # (AUTO) 0.6 X10'3 (0-0.9); MONOCYTES % (AUTO) 7.5 % (2-12); NEUTROPHILS # (AUTO) 5.5 X10'3 (1.8-7.7); PLATELET COUNT 264 X10'3 (140-440); RED BLOOD COUNT 4.69 X10'6 (4.20-5.60); RED CELL DISTRIBUTION WIDTH 13.6 % (11.5-14.5); WHITE BLOOD COUNT 7.9 X10'3 (4.5-11.0)
[2024-08-07 10:44] LABS: ALANINE AMINOTRANSFERASE 26 U/L (12-78); ALBUMIN/GLOBULIN RATIO 1.1 (1.1-1.5); ALKALINE PHOSPHATASE 56 IU/L (46-116); ANION GAP 5 (8-16); ASPARTATE AMINO TRANSFERASE 12 U/L (10-37); BILIRUBIN,TOTAL 0.4 MG/DL (0.1-1.0); BLOOD UREA NITROGEN 17 MG/DL (7-18); BUN/CREATININE RATIO 22.4 (10.0-20.0); CALCIUM 9.1 MG/DL (8.5-10.1); CHLORIDE 104 MMOL/L (99-107); CREATININE 0.76 MG/DL (0.40-0.90); GLUCOSE 83 MG/DL (70-104); SODIUM 138 MMOL/L (135-145); TOTAL CARBON DIOXIDE 28.7 MMOL/L (24-32); TOTAL PROTEIN 7.8 G/DL (6.4-8.2); eGFR 85 ML/MIN
[2024-08-07 10:52] LABS: HEMOGLOBIN A1C 5.2 % (4.5-6.2)
[2024-08-07 10:54] LABS: CHOL/HDL RATIO 3.3 (0.00-4.99); CHOLESTEROL 156 MG/DL (0-200); FREE T4 (FREE THYROXINE) 0.91 NG/DL (0.73-1.40); HDL CHOLESTEROL 47 MG/DL (35-60); LDL CHOLESTEROL 78 MG/DL (50-100); THYROID STIMULATING HORMONE 1.58 ulU/ml (0.34-4.50); TRIGLYCERIDES 227 MG/DL (20-135)
[2024-08-08 08:09] LABS: INSULIN 15.1 uIU/mL (2.6-24.9)
[2024-08-10 05:08] LABS: ANTI-MULLERIAN HORMONE 4.94 ng/mL (.)
[2024-08-11 15:08] LABS: ESTRONE, SERUM 116 pg/mL (27-231)
[2024-08-26 10:28] LABS: CORTISOL LC SEE COMMENTS
[2024-08-26 10:31] LABS: FSH, SERUM SEE COMMENTS
[2024-08-26 10:32] LABS: PROLACTIN SEE COMMENTS
[2024-08-26 10:34] LABS: TESTOSTERONE, FREE, DIRECT SEE COMMENTS
[2024-08-26 10:36] LABS: PROGESTERONE SEE COMMENTS
[2024-08-26 10:37] LABS: ESTRADIOL SEE COMMENTS PG/ML
[2024-08-26 10:39] LABS: LUTEINIZING HORMONE SEE COMMENTS
== END 2024-08-07 23:59 | disposition home or self-care (01) ==
LOC: LAB 08:44
PROVIDERS: ATTEND Nurse Practitioner Family
DX: Z00.00 Encounter for general adult medical examination without abnormal findings (principal); E78.00 Pure hypercholesterolemia, unspecified; L68.0 Hirsutism; E28.2 Polycystic ovarian syndrome; R53.83 Other fatigue; R68.82 Decreased libido; E66.3 Overweight; N92.6 Irregular menstruation, unspecified; E34.9 Endocrine disorder, unspecified; E88.810 Metabolic syndrome
CPT/HCPCS: 36415; 80053; 80061; 81479; 82397; 82670; 82679; 83001; 83002; 83036; 83525; 83892; 83894; 83898; 84144; 84146; 84402; 84439; 84443; 85025

== ENCOUNTER 2025-04-23 09:25 | Outpatient (CLI) | payer BC ==
[2025-04-23 10:04] LABS: MEAN PLATELET VOLUME 9.5 FL (7.4-10.4); RED CELL DISTRIBUTION WIDTH 12.8 % (11.5-14.5)
[2025-04-23 10:28] LABS: CHOL/HDL RATIO 3.6 (0.00-4.99); CREATININE 0.61 MG/DL (0.40-0.90); LDL CHOLESTEROL 99 MG/DL (50-100); TOTAL CARBON DIOXIDE 27.1 MMOL/L (24-32); eGFR > 90 ML/MIN
== END 2025-04-23 23:59 | disposition home or self-care (01) ==
LOC: RAD 09:25
PROVIDERS: ATTEND Nurse Practitioner Family
DX: Z00.01 Encounter for general adult medical examination with abnormal findings (principal); R79.89 Other specified abnormal findings of blood chemistry; R68.89 Other general symptoms and signs; E55.9 Vitamin D deficiency, unspecified; R94.6 Abnormal results of thyroid function studies; R80.9 Proteinuria, unspecified; R73.01 Impaired fasting glucose
CPT/HCPCS: 36415; 80053; 80061; 82306; 83036; 84443; 85025

== ENCOUNTER 2025-05-21 05:59 | Day surgery (SDC) | payer BC ==
[~2025-05-21] VITALS: Ht 170.2 cm; Wt 71.4 kg
[~2025-05-21 05:59] MED LIST changes: +DOCUMENT DATE & TIME OF BETA-BLOCKER PO ONE; +LISD60CA2 PO; +ringers solution, lacted 1,000 ML IV SCH
[2025-05-21 06:11] VITALS: BP 103/69; PULSE 99; RESP 16; TEMP 98.7; O2SAT 96
[2025-05-21] MEDS ORDERED: midazolam 1 mg/ML 2ml injection ONE ×2 (08:10→08:19)
[2025-05-21] MEDS ORDERED: fentaNYL/PF 50MCG/1 ML 2ML syringe ONE (08:17)
[2025-05-21] MEDS ORDERED: propofol inj 20 ML IV ONE (08:28)
[2025-05-21 08:40] VITALS: BP 84/39; PULSE 96; RESP 14; O2SAT 100
[2025-05-21 08:50] VITALS: BP 87/37; PULSE 93; RESP 13; O2SAT 99
[2025-05-21 09:00] VITALS: BP 100/50; PULSE 86; RESP 13; O2SAT 99
[2025-05-21 09:10] VITALS: BP 96/53; PULSE 79; RESP 12; O2SAT 99
[2025-05-21 09:20] VITALS: BP 104/56; PULSE 84; RESP 12; O2SAT 100
== END 2025-05-21 09:30 | disposition home or self-care (01) ==
LOC: GI LAB 05:59
PROVIDERS: ATTEND Internal Medicine Gastroenterology
DX: Z12.11 Encounter for screening for malignant neoplasm of colon (principal); D12.8 Benign neoplasm of rectum; G47.33 Obstructive sleep apnea (adult) (pediatric); G43.909 Migraine, unspecified, not intractable, without status migrainosus; Z79.84 Long term (current) use of oral hypoglycemic drugs; Z79.899 Other long term (current) drug therapy; Z90.49 Acquired absence of other specified parts of digestive tract; Z98.51 Tubal ligation status; Z98.890 Other specified postprocedural states; Z88.0 Allergy status to penicillin
CPT/HCPCS: 45385; 82948; J2250; J2704; J3010; J7030; J7120; Z7512; A4620; A6449; A7000